=== PATIENT | female | born 1955 | race Caucasian/White ===

== ENCOUNTER 2022-08-28 11:40 | Emergency (ER) | payer MEDICAID ==
[~2022-08-28] VITALS: Ht 175.3 cm; Wt 79.4 kg
[2022-08-28] MEDS ORDERED: BACI30OI9 TP (11:57)
[2022-08-28] MEDS ORDERED: CLIN300C12 PO (11:57)
--- NOTE | 2022-08-28 12:13 | NUR ---
PT WAS EVALUATED BY DR LEWIS. PT WAS D/C'd TO HOME. D/C INSTRUCTIONS GIVEN TO THE PT.
[2022-08-28 12:14] VITALS: BP 132/68
== END 2022-08-28 12:15 | disposition home or self-care (01) ==
LOC: ER 11:40
DX: L60.0 Ingrowing nail (principal); L08.9 Local infection of the skin and subcutaneous tissue, unspecified; E11.9 Type 2 diabetes mellitus without complications
CPT/HCPCS: A4663

== ENCOUNTER 2022-10-10 13:00 | Emergency (ER) | payer MEDICAID ==
[~2022-10-10] VITALS: Ht 172.7 cm; Wt 79.4 kg
[~2022-10-10 13:00] MED LIST: BACI30OI9 TP; CLIN300C12 PO
--- NOTE | 2022-10-10 13:10 | NUR ---
@[email or web address], [facility]
[2022-10-10] MEDS ORDERED: LIDOCAINE HCL 1% 20 ML VIAL ONE (13:16)
--- NOTE | 2022-10-10 13:19 | NUR ---
Patient expressed to have her right big toenail removed. Laceration tray with lidocaine are at bedside.
[2022-10-10] MEDS: LIDOCAINE HCL 1% 20 ML VIAL TP ONE (13:22)
[2022-10-10] MEDS ORDERED: BACITRACIN ZINC OINT 15 GM TUBE ONE (13:44)
[2022-10-10] MEDS: BACITRACIN ZINC OINT 15 GM TUBE TOP ONE (13:45)
--- NOTE | 2022-10-10 14:00 | NUR ---
Health teachings on wound care were emphasize to patient and adult daughter especially on: 1. STOPPING the hydrogen peroxide soaks per Dr Rockwell. Use mild soap and water instead for cleaning. 2. How to dress the wound if patient is going out and using close-toe shoes. 3. Keep the wound open to air when at home
--- NOTE | 2022-10-10 14:04 | NUR ---
Patient discharged to home by Dr Rockwell in stable condition with brisk steady gait. Written and verbal after care instructions given to patient's adult daughter who speaks fluent [place]. Patient's daughter verbalized understanding and compliance of instructions. Stressed follow up with primary doctor and weekend receptionist or return to ER for worsening s/s.
[2022-10-10 14:09] VITALS: BP 130/70
== END 2022-10-10 14:04 | disposition home or self-care (01) ==
LOC: ER 13:00
DX: S91.201A Unspecified open wound of right great toe with damage to nail, initial encounter (principal); E11.9 Type 2 diabetes mellitus without complications; Z79.2 Long term (current) use of antibiotics; Z79.899 Other long term (current) drug therapy; X58.XXXA Exposure to other specified factors, initial encounter; Y93.89 Activity, other specified; Y92.89 Other specified places as the place of occurrence of the external cause; Y99.8 Other external cause status
CPT/HCPCS: 99284; 11730; J3490; A4663

== ENCOUNTER 2023-11-05 13:25 | Emergency (ER) | payer MEDICAID, OTHER ==
[~2023-11-05] VITALS: Ht 170.2 cm; Wt 78.0 kg
[2023-11-05] MEDS ORDERED: LEVO112T5 PO (13:48)
[2023-11-05] MEDS ORDERED: BENA10TA74 PO (13:48)
[2023-11-05] MEDS ORDERED: AMLO10TA59 PO (13:48)
[2023-11-05] MEDS ORDERED: ATOR10TA PO (13:48)
[2023-11-05] MEDS ORDERED: SULF1TAB48 PO (14:26)
[2023-11-05 14:33] LABS: BASOPHILS # (AUTO) 0.1 K/UL (0.0-0.2); BASOPHILS % (AUTO) 0.9 % (0.0-2.0); EOSINOPHILS # (AUTO) 0.2 K/uL (0.0-0.7); EOSINOPHILS % (AUTO) 2.8 % (0.0-7.0); HEMATOCRIT 39.3 % (31.2-41.9); LYMPHOCYTES % (AUTO) 25.1 % (20.5-51.5); MEAN CORPUSCULAR HGB CONC 33 g/dL (32.3-35.6); MEAN CORPUSCULAR VOLUME 81.9 fL (75.5-95.3); MONOCYTES # (AUTO) 0.7 K/uL (0.1-1.30); MONOCYTES % (AUTO) 9.3 % (0.0-11.0); NEUTROPHILS # (AUTO) 4.8 K/uL (1.8-8.9); NEUTROPHILS % (AUTO) 61.9 % (38.5-71.5); PLATELET COUNT (AUTO) 273 K/uL (179-408); RED CELL DISTRIBUTION WIDTH 14.8 % (12.3-17.7); WHITE BLOOD COUNT (AUTO) 7.8 K/uL (3.8-11.8)
[2023-11-05] MEDS ORDERED: SULFAMETH/TRIMETH 800/160 MG TABLET ONE (14:36)
[2023-11-05] MEDS: SULFAMETH/TRIMETH 800/160 MG TABLET PO ONE (14:39)
[2023-11-05 14:45] VITALS: BP 131/81; O2SAT 98
[2023-11-05 14:49] LABS: DIFFERENTIAL COMMENT 1
[2023-11-05 14:51] LABS: CALCIUM 8.9 mg/dL (8.5-10.1); CREATININE 0.9 mg/dL (0.6-1.3); POTASSIUM 4.1 mmol/L (3.5-5.1)
== END 2023-11-05 14:46 | disposition home or self-care (01) ==
LOC: ER 13:25
DX: E11.621 Type 2 diabetes mellitus with foot ulcer (principal); Z79.899 Other long term (current) drug therapy
CPT/HCPCS: 36415; 85025; A4606; A4663